=== PATIENT | female | born 1935 | race Caucasian/White ===

== ENCOUNTER 2023-04-16 20:11 | Emergency (ER) | payer MEDICARE ==
[2023-04-16 20:38] VITALS: TEMP 97.8
[2023-04-16 20:48] LABS: BASOPHIL % 0.5 % (0.0-0.4); Basophil (Absolute #) 0.05 x10^3/uL (0-0.4); Eosinophil % 1.5 % (0.00-5.0); Eosinophil (Absolute #) 0.14 x10^3/uL (0-0.5); Hematocrit 38.2 % (35-47); Hemoglobin 12.7 g/dL (12.0-16.0); IMMATURE GRAN # 0.02 x10^3u/L (0.00-0.03); IMMATURE GRAN % 0.2 % (0.00-0.4); Lymphocyte (Absolute #) 2.03 x10^3/uL (1.0-4.6); Mean Corpuscular Hemoglobin 30.2 pg (26-32); Mean Corpuscular Hgb Concent. 33.2 g/dL (32-36); Mean Platelet Volume 9.1 fL (7.5-11.0); Monocytes % 8.7 % (0.0-12.0); Neutrophil % 67.1 % (36.0-66.0); Platelet Count 379 x10^3/uL (150-450); Red Cell Distribution Width 12.5 % (11.5-14.0); White Blood Count 9.2 x10^3/uL (4.0-10.5)
[2023-04-16 20:58] LABS: ALBUMIN 4.3 g/dL (3.5-5.0); ALKALINE PHOSPHATASE 76 U/L (38-126); BLOOD UREA NITROGEN 16 mg/dL (7-17); CHLORIDE 100 mmol/L (98-107); Calcium 9.3 mg/dL (8.4-10.2); Carbon Dioxide 26 mmol/L (22-30); Creatinine 1 0.55 mg/dL (0.52-1.04); EST GLOMERULAR FILTRATION RATE > 60.0 ML/MIN; Glucose 144 mg/dL (74-106); Potassium 3.6 mmol/L (3.5-5.1); SGOT/AST 29 U/L (14-36); SGPT/ALT 20 U/L (0-35); SODIUM 135 mmol/L (137-145); Total Protein 7.4 g/dL (6.3-8.2)
--- NOTE | 2023-04-16 21:21 | ERPHSYRPT ---
- History of Present Illness Time Seen by Provider: 04/16/23 21:16 Historian: patient Exam Limitations: no limitations Patient Subjective Stated Complaint: pt states that she thought it might be a panic attack but has had constant chest heaviness/ pressure since around noon today. 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 she got back before noon and at noon started feeling this heaviness. reports that occasionally today she has felt a little dizzy but denies LOC, syncope. she reports that her has also had a lot of health issues recently and she isn't sure if this is all anxiety and stress. Triage Nursing Assessment: pt ambulated to room 2 independently with slow steady gait. pt is alert and oriented times three, with resp even and unlabored, able t o speak in complete sentences, and able to move all extremities. heart sounds present and normal. lung sounds diminished bilat anterior in all reeves. bilat radial and pedal pulses palpable, equal, and strong. slight non pitting edema noted to bilat feet and pt/ daughter states that it is less swelling today than it has been recently. denies sob, difficulty breathing, n/v, difficulty with urination or bowel elimination. denies fever, cough, chills. Physician History: Patient is an 87-year-old female presents to our ED for evaluation of chest pressure that started this afternoon. Patient took 81 mg aspirin at 8:00 this morning. Lisinopril 20 mg p.o. at 1930 and Tylenol 325 p.o. Chest heaviness is constant. No radiation. No associated nausea vomiting or diaphoresis. Patient states she has been under tremendous amount of stress because of her personal health and her 's health. 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 Patient currently on radiation. Patient symptoms are mild in intensity. No specific worsening improving factors. Patient voices no other complaints or concerns at this time. Portions of this note were created with voice recognition technology. There may be grammatical, spelling, punctuation or sound alike errors Timing/Duration: today Activities at Onset: none Quality: aching Location: substernal Chest Pain Radiation: no radiation Severity of Pain-Max: moderate Severity of Pain-Current: mild Modifying Factors: Improves With: nothing Associated Symptoms: denies symptoms Nitro Today/Relief: no nitro taken today Aspirin Treatment Today: 81 mg x 1 Allergies/Adverse Reactions: niacin Allergy (Intermediate, Verified 04/16/23 20:14) Rash Home Medications: Acetaminophen 325 mg [Tylenol 325 mg] 325 mg PO UD 04/16/23 [History] Amiloride/Hydrochlorothiazide [Amiloride HCl-Hctz 5-50 mg Tab] 1 each PO DAILY 04/16/23 [History] Aspirin 81 gm Chew [Baby Aspirin 81 mg Chew] 81 mg PO DAILY 04/16/23 [History] Lisinopril 20 mg [Zestril 20 MG] 20 mg PO DAILY 04/16/23 [History] Metformin HCl 500 mg [Glucophage 500 MG] 500 mg PO BIDWM 04/16/23 [History] Simvastatin 40 mg PO EVENING MEAL 04/16/23 [History] Hx Tetanus, Diphtheria Vaccination/Date Given: Yes Hx Influenza Vaccination/Date Given: Yes Hx Pneumococcal Vaccination/Date Given: Yes Immunizations Up to Date: Yes Travel Risk - International Travel Have you traveled outside of the country in past 3 weeks: No - Coronavirus Screening Are you exhibiting any of the following symptoms?: No Close contact with a COVID-19 positive Pt in past 14-21 Days: No - Vaccine Status Have you recieved a Covid-19 vaccination: Yes [employer]: Moderna - Vaccination Dates Date of 2cond Vaccination (if applicable): unknown - Review of Systems Constitutional: No Symptoms, No Fever, No Chills Eyes: No Symptoms Ears, Nose, & Throat: No Symptoms Respiratory: No Symptoms, No Cough, No Dyspnea Cardiac: No Symptoms, No Chest Pain, No Edema, No Syncope Abdominal/Gastrointestinal: No Symptoms, No Abdominal Pain, No Nausea, No Vomiting, No Diarrhea Genitourinary Symptoms: No Symptoms, No Dysuria Musculoskeletal: No Symptoms, No Back Pain, No Neck Pain Skin: No Symptoms, No Rash Neurological: No Symptoms, No Dizziness, No Focal Weakness, No Sensory Changes Psychological: No Symptoms Endocrine: No Symptoms Hematologic/Lymphatic: No Symptoms Immunological/Allergic: No Symptoms All Other Systems: Reviewed and Negative - Past Medical History Pertinent Past Medical History: Yes Neurological History: No Pertinent History ENT History: No Pertinent History Cardiac History: High Cholesterol, Hypertension, Other Respiratory History: Lung Cancer Endocrine Medical History: Diabetes Type II Musculoskeletal History: No Pertinent History GI Medical History: No Pertinent History History: No Pertinent History Psycho-Social History: Anxiety Female Reproductive Disorders: No Pertinent History Other Medical History: heart murmur- Dr Santos, 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 - Past Surgical History Past Surgical History: Yes Neuro Surgical History: No Pertinent History Cardiac: No Pertinent History Respiratory: No Pertinent History Gastrointestinal: No Pertinent History Genitourinary: No Pertinent History Musculoskeletal: No Pertinent History Female Surgical History: Hysterectomy - Social History Smoking Status: Never smoker Exposure to second hand smoke: No Drug Use: none Patient Lives Alone: No - Nursing Vital Signs Nursing Vital Signs: Initial Vital Signs Temperature 97.8 F 04/16/23 20:15 Pulse Rate 87 04/16/23 20:15 Respiratory Rate 18 04/16/23 20:15 Blood Pressure 213/105 04/16/23 20:15 O2 Sat by Pulse Oximetry 99 04/16/23 20:15 Pain Scale Pain Intensity 0 - Physical Exam General Appearance: no apparent distress, alert Eye Exam: PERRL/EOMI, eyes nml inspection Ears, Nose, Throat Exam: normal ENT inspection, moist mucous membranes Neck Exam: normal inspection, non-tender, supple, full range of motion Respiratory Exam: normal breath sounds, lungs clear, airway intact, No respiratory distress Cardiovascular Exam: regular rate/rhythm, normal heart sounds, normal peripheral pulses Gastrointestinal/Abdomen Exam: soft, No tenderness, No mass Back Exam: normal inspection, No CVA tenderness, No vertebral tenderness Extremity Exam: normal inspection, normal range of motion Neurologic Exam: alert, oriented x 3, cooperative, normal mood/affect, sensation nml, No motor deficits Skin Exam: normal color, warm, dry Lymphatic Exam: No adenopathy SpO2 Interpretation: normal SpO2: 99 O2 Delivery: Room Air - Course Nursing assessment & vital signs reviewed: Yes EKG Interpreted by Me: RATE ([id number]), Sinus Rhythm, NORMAL AXIS, NORMAL INTERVALS Ordered Tests: Active Orders 24 hr Category Date Time Status AMA [Release AMA] OM.NOW Care 04/16/23 23:30 Active Gridcap Machine Operator STAT Care 04/16/23 20:42 Active EKG-ER Only STAT Care 04/16/23 20:42 Active IV Insertion STAT Care 04/16/23 20:42 Active Pulse Oximetry (ED) STAT Care 04/16/23 20:42 Active CHEST 1 VIEW (PORTABLE) Stat Exams 04/16/23 20:42 Taken CBC W DIFF Stat Lab 04/16/23 20:46 Completed CMP Stat Lab 04/16/23 20:46 Completed TROPONIN Q4H Lab 04/16/23 20:46 Completed TROPONIN Q4H Lab 04/17/23 00:45 Ordered TROPONIN Q4H Lab 04/17/23 04:45 Ordered Lab/Rad Data: Laboratory Result Diagrams 04/16/23 20:46 04/16/23 20:46 Laboratory Results 04/16/23 04/16/23 04/16/23 Range/Units 20:46 20:46 20:46 WBC 9.2 (4.0-10.5) x10^3/uL RBC 4.20 (4.1-5.4) x10^6/uL Hgb 12.7 (12.0-16.0) g/dL Hct 38.2 (35-47) % MCV 91.0 (78-100) fL MCH 30.2 (26-32) pg MCHC 33.2 (32-36) g/dL RDW 12.5 (11.5-14.0) % Plt Count 379 (150-450) x10^3/uL MPV 9.1 (7.5-11.0) fL Gran % 67.1 H (36.0-66.0) % Immature Gran % (Auto) 0.2 (0.00-0.4) % Nucleat RBC Rel Count 0.0 (0.00-0.1) % Eos # (Auto) 0.14 (0-0.5) x10^3/uL Immature Gran # (Auto) 0.02 (0.00-0.03) x10^3u/L Absolute Lymphs (auto) 2.03 (1.0-4.6) x10^3/uL Absolute Monos (auto) 0.80 (0.0-1.3) x10^3/uL Absolute Nucleated RBC 0.00 (0.00-0.01) x10^3u/L Lymphocytes % 22.0 L (24.0-44.0) % Monocytes % 8.7 (0.0-12.0) % Eosinophils % 1.5 (0.00-5.0) % Basophils % 0.5 (0.0-0.4) % Absolute Granulocytes 6.20 (1.4-6.9) x10^3/uL Basophils # 0.05 (0-0.4) x10^3/uL Sodium 135 L (137-145) mmol/L Potassium 3.6 (3.5-5.1) mmol/L Chloride 100 (98-107) mmol/L Carbon Dioxide 26 (22-30) mmol/L Anion Gap 13.0 (5-15) MEQ/L BUN 16 (7-17) mg/dL Creatinine 0.55 (0.52-1.04) mg/dL Estimated GFR > 60.0 ML/MIN Glucose 144 H (74-106) mg/dL Calcium 9.3 (8.4-10.2) mg/dL Total Bilirubin 0.50 (0.2-1.3) mg/dL AST 29 (14-36) U/L ALT 20 (0-35) U/L Alkaline Phosphatase 76 (38-126) U/L Troponin I < 0.012 (0.000-0.034) ng/mL Serum Total Protein 7.4 (6.3-8.2) g/dL Albumin 4.3 (3.5-5.0) g/dL - Progress Progress: improved Air Movement: good Progress Note: 87-year-old female presents to our ED with chest pain. EKG normal sinus rhythm. Ischemic changes. Chest x-ray unchanged from previous as compared to 02/15/2023. CBC CMP nonremarkable. Troponin negative. Patient decided to leave prior to her second troponin. AMA form completed. Patient is of sound mind. Patient is appropriate to make informed and independent medical decisions. Patient understands that leaving AGAINST MEDICAL ADVICE can result in delayed diagnosis, increased risk of morbidity, mortality, short and long-term disability including . In spite of these risks, patient has decided to leave AGAINST MEDICAL ADVICE. Patient understands that she may return to our ED at any point if she reconsiders. Patient agrees to follow-up with her primary care doctor within 48 hours for reevaluation. Patient voices no other complaints or concerns at this time. We will release patient AGAINST MEDICAL ADVICE per their request. 04/16/23 23:36 Complexity of problem addressed is moderate acute complicated Complex of data reviewed and analyzed is moderate. Test ordered. Test reviewed. Clinical correlation made between findings and history and physical examination. Chest x-ray independently reviewed by Dr. Garcia. Formal read pending. EKG shows sinus rhythm. No ischemic changes observed Risk of complication and or risk morbidity/mortality patient management is moderate. Patient discharged AMA. Vital stable. Portions of this note were created with voice recognition technology. There may be grammatical, spelling, punctuation or sound alike errors 04/16/23 23:48 Blood Culture(s) Obtained: No Antibiotics given: No Counseled pt/family regarding: lab results, diagnosis, need for follow-up, rad results - Departure Departure Disposition: Home Clinical Impression: Chest pain Condition: Stable Critical Care Time: No Referrals: REGINO ALEXANDRA NP [Primary Care Provider] - Follow up/PCP as directed Instructions: Chest Pain, Chest Pain That Is Not Caused by the Heart (DC) Additional Instructions: Discharge/Care Plan PONCE SPARKS was seen on 04/16/23 in the Emergency Room. The patient was counseled regarding Diagnosis,Lab results, Imaging studies, need for follow up and when to return to the Emergency Room. Prescriptions given: Discharge Note I have spoken with the patient and/or caregivers. I have explained the patient's condition, diagnosis and treatment plan based on the information available to me at this time. I have answered the patient's and/or caregiver's questions and addressed any concerns. The patient and/or caregivers have as good understanding of the patient's diagnosis, condition and treatment plan as can be expected at this point. The vital signs have been stable. The patient's condition is stable and appropriate for discharge from the emergency department. The patient will pursue further outpatient evaluation with the primary care physician or other designated or consulting physician as outlined in the discharge instructions. The patient and/or caregivers are agreeable to this plan of care and follow-up instructions have been explained in detail. The patient and/or caregivers have received these instruction. The patient/and or caregivers are aware that any significant change in condition or worsening of symptoms should prompt an immediate return to this or the closest emergency department or call 911.
[2023-04-16 23:31] VITALS: O2SAT 99
[2023-04-16 23:42] VITALS: BP 168/90; PULSE 78; RESP 16
--- NOTE | 2023-04-17 09:17 | XRAY ---
Indication: Pain. History small cell carcinoma with treatment. Comparison: February 15, 2023 Portable apical lordotic chest unchanged again demonstrating chronic right hemidiaphragm elevation with right basilar atelectasis. Remaining lungs clear. Heart not enlarged. Bony thorax intact again with osteopenia, degenerative changes, and scoliosis. No new/acute findings.
== END 2023-04-16 23:40 | disposition left against medical advice (07) ==
LOC: ED 20:11
DX: R07.9 Chest pain, unspecified (principal); E78.5 Hyperlipidemia, unspecified; I10 Essential (primary) hypertension; E11.9 Type 2 diabetes mellitus without complications; Z79.84 Long term (current) use of oral hypoglycemic drugs; Z79.899 Other long term (current) drug therapy
CPT/HCPCS: 36000; 36415; 71045; 80053; 84484; 85025; 93005; 93041; 94760; 99284

== ENCOUNTER 2023-06-12 12:15 | Emergency (ER) | payer MEDICARE ==
--- NOTE | 2023-06-12 12:44 | ERPHSYRPT ---
- History of Present Illness Time Seen by Provider: 06/12/23 12:44 Source: patient, family Exam Limitations: clinical condition Physician History: This is an 87-year-old white female patient whose primary care provider is nurse practitioner Brandee Arcos and presents with several hour history of confusion, dizziness, headache and nausea. Patient arrives to the emergency department with resolution of her headache. She has no chest pain. She denies shortness of breath. She denies abdominal pain. Patient's daughter, who provided additional independent history, states that the patient's blood pressure was 150/70. They are unaware exactly when the patient's symptoms began. However, the patient's daughter states that she has improved. 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 Timing/Duration: today Severity: mild Character of Deficits: none Deficits: no difficulties Baseline/Normal Cognition: alert but confused Current Cognition: alert but confused Baseline Gait: walks w/o assistance Associated Symptoms: confusion, nausea, headache, other (Dizziness) Allergies/Adverse Reactions: niacin Allergy (Intermediate, Verified 06/12/23 12:49) Rash Home Medications: Acetaminophen 325 mg [Tylenol 325 mg] 325 mg PO UD 04/16/23 [History] Amiloride/Hydrochlorothiazide [Amiloride HCl-Hctz 5-50 mg Tab] 1 each PO DAILY 04/16/23 [History] Aspirin 81 gm Chew [Baby Aspirin 81 mg Chew] 81 mg PO DAILY 04/16/23 [History] Lisinopril 20 mg [Zestril 20 MG] 20 mg PO DAILY 04/16/23 [History] Metformin HCl 500 mg [Glucophage 500 MG] 500 mg PO BIDWM 04/16/23 [History] Simvastatin 40 mg PO EVENING MEAL 04/16/23 [History] Escitalopram Oxalate [Lexapro] 10 mg PO DAILY 05/24/23 [History] Meclizine HCl 12.5 mg PO TID PRN 05/24/23 [History] ALPRAZolam 0.25 MG [xanAX 0.25 MG] 0.5 - 1 tab PO DAILY PRN PRN 09/23/23 [History] Hx Tetanus, Diphtheria Vaccination/Date Given: Yes Hx Influenza Vaccination/Date Given: Yes Hx Pneumococcal Vaccination/Date Given: Yes Travel Risk - International Travel Have you traveled outside of the country in past 3 weeks: No - Coronavirus Screening Are you exhibiting any of the following symptoms?: No Close contact with a COVID-19 positive Pt in past 14-21 Days: No - Vaccine Status Have you recieved a Covid-19 vaccination: Yes Cleaner Greaser: Moderna - Vaccination Dates Date of 2cond Vaccination (if applicable): unknown - Review of Systems Constitutional: No Symptoms Eyes: No Symptoms Ears, Nose, & Throat: No Symptoms Respiratory: No Symptoms Cardiac: No Symptoms Abdominal/Gastrointestinal: No Symptoms Genitourinary Symptoms: No Symptoms Musculoskeletal: No Symptoms Skin: No Symptoms Neurological: Dizziness Psychological: No Symptoms Endocrine: No Symptoms Hematologic/Lymphatic: No Symptoms Immunological/Allergic: No Symptoms All Other Systems: Reviewed and Negative - Past Medical History Pertinent Past Medical History: Yes Neurological History: No Pertinent History ENT History: No Pertinent History Cardiac History: High Cholesterol, Hypertension, Other Respiratory History: Lung Cancer Endocrine Medical History: Diabetes Type II Musculoskeletal History: No Pertinent History GI Medical History: No Pertinent History History: No Pertinent History Psycho-Social History: Anxiety Female Reproductive Disorders: No Pertinent History Other Medical History: heart murmur- Dr Santos, 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 - Past Surgical History Past Surgical History: Yes Neuro Surgical History: No Pertinent History Cardiac: No Pertinent History Respiratory: No Pertinent History Gastrointestinal: No Pertinent History Genitourinary: No Pertinent History Musculoskeletal: No Pertinent History Female Surgical History: Hysterectomy - Social History Smoking Status: Never smoker Exposure to second hand smoke: No Drug Use: none Patient Lives Alone: No - Nursing Vital Signs Nursing Vital Signs: Initial Vital Signs Temperature 98.0 F 06/12/23 12:50 Pulse Rate 68 06/12/23 12:50 Respiratory Rate 18 06/12/23 12:50 Blood Pressure 177/74 06/12/23 12:50 O2 Sat by Pulse Oximetry 97 06/12/23 12:50 Pain Scale Pain Intensity 0 - [place] Coma Scale Best Eye Response (Angelica): (4) open spontaneously Best Verbal Response (Angelica): (4) confused conversation Best Motor Response (Angelica): (6) obeys commands [place] Total: 14 - Physical Exam General Appearance: no apparent distress, alert, anxiety, thin Eye Exam: bilateral eye: normal inspection, PERRL, EOMI Ears, Nose, Throat Exam: normal ENT inspection, moist mucous membranes Neck Exam: normal inspection, non-tender, supple, full range of motion Respiratory: normal breath sounds, lungs clear, airway intact, No chest tenderness, No respiratory distress Cardiovascular: regular rate/rhythm, normal heart sounds, normal peripheral pulses Gastrointestinal: soft, normal bowel sounds, No tenderness Pelvic Exam: not done Rectal Exam: not done Back Exam: normal inspection, normal range of motion, No CVA tenderness, No vertebral tenderness Extremity Exam: normal inspection, normal range of motion, pelvis stable Mental Status: alert, oriented x 3, cooperative contract administration coordinator Exam: normal hearing, normal speech, PERRL, tongue midline Motor/Sensory: no motor deficit, no sensory deficit Skin Exam: normal color, warm, dry SpO2 Interpretation: normal O2 Delivery: Room Air - Course Nursing assessment & vital signs reviewed: Yes EKG Interpreted by Me: RATE (66), Sinus Rhythm, NORMAL AXIS, NORMAL INTERVALS, Right Bundle Branch Block, Other (No acute ischemic changes on today's twelve- lead EKG.) Ordered Tests: Active Orders 24 hr Category Date Time Status EKG-ER Only STAT Care 06/12/23 13:03 Active IV Insertion STAT Care 06/12/23 13:03 Active HEAD WITHOUT CONTRAST [CT] Stat Exams 06/12/23 13:03 Completed CBC W DIFF Stat Lab 06/12/23 13:15 Completed CMP Stat Lab 06/12/23 13:15 Completed CULTURE,URINE Stat Lab 06/12/23 13:06 Received MAGNESIUM Stat Lab 06/12/23 13:15 Completed TROPONIN Q4H Lab 06/12/23 13:15 Completed TROPONIN Q4H Lab 06/12/23 17:15 Ordered TROPONIN Q4H Lab 06/12/23 21:15 Ordered UA W/RFX UR CULTURE Stat Lab 06/12/23 13:06 Completed Medication Summary Generic Name Dose Route Start Last Admin Trade Name Freq PRN Reason Stop Dose Admin Sodium Chloride 1,000 mls @ 100 mls/hr 06/12/23 13:15 06/12/23 13:26 Sodium Chloride 0.9% 1000 Ml IV 07/12/23 13:14 100 mls/hr .Q10H ANABELLE Administration Discontinued Medications Generic Name Dose Route Start Last Admin Trade Name Freq PRN Reason Stop Dose Admin Ceftriaxone Sodium/Dextrose 1 g in 50 mls @ 100 mls/hr 06/12/23 13:55 06/12/23 14:04 Rocephin 1 Gm-D5w 50 Ml Bag IV 06/12/23 14:24 100 ml/hr STAT STA 100 mls/hr Administration Ceftriaxone Sodium/Dextrose Confirm 06/12/23 14:02 Rocephin 1 Gm-D5w 50 Ml Bag Administered 06/12/23 14:03 Dose 1 g in 50 mls @ ud IV .K-MED ONE Lab/Rad Data: Laboratory Result Diagrams 06/12/23 13:15 06/12/23 13:15 Laboratory Results 06/12/23 06/12/23 06/12/23 Range/Units 13:15 13:15 13:15 WBC (4.0-10.5) x10^3/uL RBC (4.1-5.4) x10^6/uL Hgb (12.0-16.0) g/dL Hct (35-47) % MCV (78-100) fL MCH (26-32) pg MCHC (32-36) g/dL RDW (11.5-14.0) % Plt Count (150-450) x10^3/uL MPV (7.5-11.0) fL Gran % (36.0-66.0) % Immature Gran % (Auto) (0.00-0.4) % Nucleat RBC Rel Count (0.00-0.1) % Eos # (Auto) (0-0.5) x10^3/uL Immature Gran # (Auto) (0.00-0.03) x10^3u/L Absolute Lymphs (auto) (1.0-4.6) x10^3/uL Absolute Monos (auto) (0.0-1.3) x10^3/uL Absolute Nucleated RBC (0.00-0.01) x10^3u/L Lymphocytes % (24.0-44.0) % Monocytes % (0.0-12.0) % Eosinophils % (0.00-5.0) % Basophils % (0.0-0.4) % Absolute Granulocytes (1.4-6.9) x10^3/uL Basophils # (0-0.4) x10^3/uL Sodium 136 L (137-145) mmol/L Potassium 3.5 (3.5-5.1) mmol/L Chloride 98 (98-107) mmol/L Carbon Dioxide 26 (22-30) mmol/L Anion Gap 15.4 H (5-15) MEQ/L BUN 15 (7-17) mg/dL Creatinine 0.56 (0.52-1.04) mg/dL Estimated GFR > 60.0 ML/MIN Glucose 91 (74-106) mg/dL Calcium 8.9 (8.4-10.2) mg/dL Magnesium 1.4 L (1.6-2.3) mg/dL Total Bilirubin 0.50 (0.2-1.3) mg/dL AST 30 (14-36) U/L ALT 21 (0-35) U/L Alkaline Phosphatase 66 (38-126) U/L Troponin I < 0.012 (0.000-0.034) ng/mL Serum Total Protein 6.9 (6.3-8.2) g/dL Albumin 3.9 (3.5-5.0) g/dL Urine Color (Yellow) Urine Appearance (Clear) Urine pH (4.6-8.0) Ur Specific [place] (1.005-1.030) Urine Protein (Negative) Urine Glucose (UA) (Negative) mg/dL Urine Ketones (Negative) Urine Blood (Negative) Urine Nitrite (Negative) Urine Bilirubin (Negative) Urine Urobilinogen (0.2) mg/dL Ur Leukocyte Esterase (Negative) U Hyaline Cast (Auto) (0-2) /LPF Urine Microscopic RBC (0-5) /HPF Urine Microscopic WBC (0-5) /HPF Ur Epithelial Cells (None Seen) /HPF Urine Bacteria (None Seen) /HPF Urine Culture Reflexed (NO) Influenza Type A Ag NEGATIVE (NEGATIVE) Influenza Type B Ag NEGATIVE (NEGATIVE) RSV (PCR) NEGATIVE (NEGATIVE) SARS-CoV-2 (PCR) NEGATIVE (NEGATIVE) 06/12/23 06/12/23 Range/Units 13:15 13:06 WBC 7.3 (4.0-10.5) x10^3/uL RBC 3.81 L (4.1-5.4) x10^6/uL Hgb 11.9 L (12.0-16.0) g/dL Hct 34.7 L (35-47) % MCV 91.1 (78-100) fL MCH 31.2 (26-32) pg MCHC 34.3 (32-36) g/dL RDW 14.0 (11.5-14.0) % Plt Count 376 (150-450) x10^3/uL MPV 8.6 (7.5-11.0) fL Gran % 75.3 H (36.0-66.0) % Immature Gran % (Auto) 0.5 H (0.00-0.4) % Nucleat RBC Rel Count 0.0 (0.00-0.1) % Eos # (Auto) 0.10 (0-0.5) x10^3/uL Immature Gran # (Auto) 0.04 H (0.00-0.03) x10^3u/L Absolute Lymphs (auto) 0.68 L (1.0-4.6) x10^3/uL Absolute Monos (auto) 0.96 (0.0-1.3) x10^3/uL Absolute Nucleated RBC 0.00 (0.00-0.01) x10^3u/L Lymphocytes % 9.3 L (24.0-44.0) % Monocytes % 13.1 H (0.0-12.0) % Eosinophils % 1.4 (0.00-5.0) % Basophils % 0.4 (0.0-0.4) % Absolute Granulocytes 5.53 (1.4-6.9) x10^3/uL Basophils # 0.03 (0-0.4) x10^3/uL Sodium (137-145) mmol/L Potassium (3.5-5.1) mmol/L Chloride (98-107) mmol/L Carbon Dioxide (22-30) mmol/L Anion Gap (5-15) MEQ/L BUN (7-17) mg/dL Creatinine (0.52-1.04) mg/dL Estimated GFR ML/MIN Glucose (74-106) mg/dL Calcium (8.4-10.2) mg/dL Magnesium (1.6-2.3) mg/dL Total Bilirubin (0.2-1.3) mg/dL AST (14-36) U/L ALT (0-35) U/L Alkaline Phosphatase (38-126) U/L Troponin I (0.000-0.034) ng/mL Serum Total Protein (6.3-8.2) g/dL Albumin (3.5-5.0) g/dL Urine Color Yellow (Yellow) Urine Appearance Cloudy A (Clear) Urine pH 6.5 (4.6-8.0) Ur Specific [place] 1.015 (1.005-1.030) Urine Protein Negative (Negative) Urine Glucose (UA) Negative (Negative) mg/dL Urine Ketones Negative (Negative) Urine Blood Trace (Negative) Urine Nitrite Negative (Negative) Urine Bilirubin Negative (Negative) Urine Urobilinogen 2.0 A (0.2) mg/dL Ur Leukocyte Esterase Moderate A (Negative) U Hyaline Cast (Auto) NONE SEEN (0-2) /LPF Urine Microscopic RBC 0-2 (0-5) /HPF Urine Microscopic WBC 21-50 A (0-5) /HPF Ur Epithelial Cells Rare (None Seen) /HPF Urine Bacteria Many A (None Seen) /HPF Urine Culture Reflexed YES (NO) Influenza Type A Ag (NEGATIVE) Influenza Type B Ag (NEGATIVE) RSV (PCR) (NEGATIVE) SARS-CoV-2 (PCR) (NEGATIVE) - Progress Progress: improved, re-examined Progress Note: 06/12/23 13:14 This patient's medical issue is 1 of moderate to high complexity. Level complexity in the work-up performed is based on review of the patient's past medical history, review the patient's medication list, review the patient's drug allergy list, history of present illness and physical findings on examination. The work-up in this patient includes intravenous line placement, intravenous normal saline, CBC, CMP, urinalysis, magnesium level, twelve-lead EKG, troponin level, CT scan of the head without contrast. 06/12/23 13:[address] scan of the head without contrast was interpreted by the radiologist and I reviewed the interpretation. 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 There is a smaller right occipital subcutaneous soft tissue mass. Counseled pt/family regarding: lab results, diagnosis, rad results Medical Desision Making - Independent Historian Additional History obtained from: Child (Daughter) - Diagnostic Testing Diagnostic test were ordered, analyzed, and reviewed by me: Yes Radiological Interpretation: Reviewed by me, Teleradiologist Report - Risk of complications The pt has a mod risk of morbidity or mortality based on: Need for prescription drug management - Departure Departure Disposition: Home Clinical Impression: Confusion associated with infection, UTI (urinary tract infection) Condition: Stable Critical Care Time: No Referrals: [facility] [employer] [facility] [Primary Care Provider] - Follow up/PCP as directed Additional Instructions: Plenty of fluids. Take your antibiotics and other medications as prescribed. Call your primary care provider today, 06/12/2023, to make arranges for follow- up appointment for further evaluation management. Prescriptions: Levofloxacin [Levaquin 500 MG Tablet] 500 mg PO DAILY #7 tablet
[2023-06-12 13:05] VITALS: TEMP 98
[2023-06-12] MEDS ORDERED: Sodium Chloride 0.9% 1000 ML 1,000 ML IV SCH (13:15)
[2023-06-12] MEDS ORDERED: Sodium Chloride 0.9% 1000 ML 1,000 ML ONE (13:24)
[2023-06-12 13:28] LABS: Absolute Neutrophil Ct (ANC) 5.53 x10^3/uL (1.4-6.9); BASOPHIL % 0.4 % (0.0-0.4); Basophil (Absolute #) 0.03 x10^3/uL (0-0.4); Eosinophil % 1.4 % (0.00-5.0); Hematocrit 34.7 % (35-47); Hemoglobin 11.9 g/dL (12.0-16.0); IMMATURE GRAN # 0.04 x10^3u/L (0.00-0.03); IMMATURE GRAN % 0.5 % (0.00-0.4); Lymphocyte (Absolute #) 0.68 x10^3/uL (1.0-4.6); Lymphocytes % 9.3 % (24.0-44.0); Mean Cell Volume 91.1 fL (78-100); Mean Corpuscular Hemoglobin 31.2 pg (26-32); Mean Corpuscular Hgb Concent. 34.3 g/dL (32-36); Mean Platelet Volume 8.6 fL (7.5-11.0); Monocyte (Absolute #) 0.96 x10^3/uL (0.0-1.3); Monocytes % 13.1 % (0.0-12.0); Neutrophil % 75.3 % (36.0-66.0); Platelet Count 376 x10^3/uL (150-450); Red Blood Count 3.81 x10^6/uL (4.1-5.4); White Blood Count 7.3 x10^3/uL (4.0-10.5)
[2023-06-12 13:32] LABS: Appearance Cloudy (Clear); Bilirubin Negative (Negative); Blood Trace (Negative); Glucose, Urine Negative (Negative); Ketones Negative (Negative); Leukocyte Esterase Moderate (Negative); Nitrite Negative (Negative); Ph 6.5 (4.6-8.0); Protein,Urine Dip Negative (Negative); Specific Gravity 1.015 (1.005-1.030)
--- NOTE | 2023-06-12 13:35 | XRAY ---
Indication: Headache and dizziness. No known injury. Multiple contiguous axial images obtained through the head without contrast. Comparison: May 24, 2023. Again age-appropriate global atrophy, mild periventricular degenerative micro-ischemia bilaterally, and remote lacunar infarcts both basal ganglia/left caudate head. No acute intracranial hemorrhage, abnormal extra-axial fluid collection, or mass effect. Fourth ventricle is midline without hydrocephalus. Bony calvarium intact. Visualized paranasal sinuses clear. Previous right occipital subcutaneous soft tissue mass continues to be smaller measuring 2.0 x 0.7 cm. Impression: 1. Continued nonacute senile brain with remote lacunar infarcts. 2. Smaller right occipital subcutaneous soft tissue mass.
[2023-06-12 13:37] LABS: Bacteria Many /HPF (None Seen); Epithelial Cells Rare /HPF (None Seen); Hyaline Casts NONE SEEN /LPF (0-2); RBC 0-2 /HPF (0-5); WBC 21-50 /HPF (0-5)
[2023-06-12 13:43] LABS: ADD URINE CULTURE? YES (NO)
[2023-06-12] MEDS ORDERED: ROCEPHIN 1 Gm-D5w 50 ml Bag** 1 G/50 ML IVPB IV STA (13:55)
[2023-06-12] MEDS ORDERED: ROCEPHIN 1 Gm-D5w 50 ml Bag** 1 G/50 ML IVPB IV ONE (14:02)
[2023-06-12 14:06] LABS: INFLUENZA A NEGATIVE (NEGATIVE); INFLUENZA B NEGATIVE (NEGATIVE); RESPIRATORY SYNCTIAL VIRUS NEGATIVE (NEGATIVE); SARS-CoV-2 Xpert Express NEGATIVE (NEGATIVE)
[2023-06-12 14:17] LABS: ALBUMIN 3.9 g/dL (3.5-5.0); ALKALINE PHOSPHATASE 66 U/L (38-126); ANION GAP 15.4 MEQ/L (5-15); BLOOD UREA NITROGEN 15 mg/dL (7-17); CHLORIDE 98 mmol/L (98-107); Calcium 8.9 mg/dL (8.4-10.2); Carbon Dioxide 26 mmol/L (22-30); Creatinine 1 0.56 mg/dL (0.52-1.04); EST GLOMERULAR FILTRATION RATE > 60.0 ML/MIN; Glucose 91 mg/dL (74-106); MAGNESIUM 1.4 mg/dL (1.6-2.3); Potassium 3.5 mmol/L (3.5-5.1); SGOT/AST 30 U/L (14-36); SGPT/ALT 21 U/L (0-35); SODIUM 136 mmol/L (137-145); Total Protein 6.9 g/dL (6.3-8.2)
[2023-06-12 14:32] VITALS: BP 192/101; PULSE 79; RESP 18; O2SAT 96
== END 2023-06-12 15:24 | disposition home or self-care (01) ==
LOC: ED 12:15
DX: N39.0 Urinary tract infection, site not specified (principal); R41.0 Disorientation, unspecified; R42 Dizziness and giddiness; R51.9 Headache, unspecified; R11.0 Nausea; I10 Essential (primary) hypertension; E78.5 Hyperlipidemia, unspecified; E11.9 Type 2 diabetes mellitus without complications; Z79.84 Long term (current) use of oral hypoglycemic drugs; Z79.899 Other long term (current) drug therapy; Z20.828 Contact with and (suspected) exposure to other viral communicable diseases
CPT/HCPCS: 0241U; 36000; 36415; 70450; 80053; 81001; 83735; 84484; 85025; 87077; 87086; 87186; 93005; 96360; 96361; 96365; 99284; J0696

== ENCOUNTER 2023-11-14 19:51 | Emergency (ER) | payer MEDICARE ==
[2023-11-14 20:25] VITALS: TEMP 98.6
[2023-11-14] MEDS ORDERED: Sodium Chloride 0.9% 1000 ML 1,000 ML ONE (21:14)
[2023-11-14] MEDS ORDERED: Reglan 10 MG/2 ML ONE (21:14)
[2023-11-14] MEDS ORDERED: BENADRYL 50 MG/ML ONE (21:14)
[2023-11-14] MEDS: Sodium Chloride 0.9% 1000 ML 1,000 ML IV SCH (21:37)
[2023-11-14 21:39] LABS: Absolute Neutrophil Ct (ANC) 7.43 x10^3/uL (1.4-6.9); BASOPHIL % 0.3 % (0.0-0.4); Basophil (Absolute #) 0.03 x10^3/uL (0-0.4); Eosinophil % 0.9 % (0.00-5.0); Eosinophil (Absolute #) 0.08 x10^3/uL (0-0.5); Hematocrit 38.5 % (35-47); Hemoglobin 12.8 g/dL (12.0-16.0); IMMATURE GRAN # 0.04 x10^3u/L (0.00-0.03); IMMATURE GRAN % 0.4 % (0.00-0.4); Lymphocyte (Absolute #) 0.79 x10^3/uL (1.0-4.6); Lymphocytes % 8.6 % (24.0-44.0); Mean Cell Volume 93.7 fL (78-100); Mean Corpuscular Hemoglobin 31.1 pg (26-32); Mean Corpuscular Hgb Concent. 33.2 g/dL (32-36); Mean Platelet Volume 9.6 fL (7.5-11.0); Monocyte (Absolute #) 0.81 x10^3/uL (0.0-1.3); Monocytes % 8.8 % (0.0-12.0); Platelet Count 315 x10^3/uL (150-450); Red Blood Count 4.11 x10^6/uL (4.1-5.4); Red Cell Distribution Width 12.5 % (11.5-14.0); White Blood Count 9.2 x10^3/uL (4.0-10.5)
[2023-11-14] MEDS: BENADRYL 50 MG/ML IV ONE (21:53)
[2023-11-14] MEDS: Reglan 10 MG/2 ML IV ONE (21:58)
[2023-11-14 22:00] LABS: ALBUMIN 4.1 g/dL (3.5-5.0); BILIRUBIN,TOTAL 0.6 mg/dL (0.2-1.3); Calcium 9.2 mg/dL (8.4-10.2); Creatinine 1 0.6 mg/dL (0.52-1.04); EST GLOMERULAR FILTRATION RATE 86.8 ML/MIN; Potassium 3.6 mmol/L (3.5-5.1); Total Protein 7.1 g/dL (6.3-8.2)
[2023-11-14 22:05] LABS: Appearance Clear (Clear); Bacteria None Seen /HPF (None Seen); Bilirubin Negative (Negative); Blood Negative (Negative); Epithelial Cells None Seen /HPF (None Seen); Glucose, Urine Negative (Negative); Hyaline Casts NONE SEEN /LPF (0-2); Ketones Trace (Negative); Leukocyte Esterase Trace (Negative); Nitrite Negative (Negative); Ph 8.5 (4.6-8.0); Protein,Urine Dip Trace (Negative)
[2023-11-14 22:06] LABS: ADD URINE CULTURE? YES (NO)
[2023-11-14] MEDS ORDERED: ROCEPHIN 2 Gm-D5w 50ML BAG** 2 G/50 ML IVPB IV ONE (22:27)
[2023-11-14] MEDS ORDERED: APRESOLINE 20 MG/ML INJ ONE (22:29)
[2023-11-14] MEDS: APRESOLINE 20 MG/ML INJ IV ONE (22:31)
[2023-11-14] MEDS: ROCEPHIN 2 Gm-D5w 50ML BAG** 2 G/50 ML IVPB IV STA (22:31)
--- NOTE | 2023-11-14 22:56 | ERPHSYRPT ---
- History of Present Illness Time Seen by Provider: 11/14/23 20:16 Source: patient, family Exam Limitations: no limitations Patient Subjective Stated Complaint: headache since noon today Triage Nursing Assessment: pt ambulatory to bed by self from wheelchair, pt alert and oriented x3, skin pwd, pt c/o headache since noon and generalized weakness for the last couple weeks, pt receives radiation treatments for lung CA at [facility]. last tx was 2-3 weeks ago. pt states shes had weakness since her last radiation treatment, pt states she did have a fall yesterday tripping over her cat and hit her L side of her head. pt denies any LOC or bloodthinners. pt c/o R sided headache. hand edger liner equal and strong bilaterally, no drift noted with any of her extremities. 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 Patient is feeling weak fatigued tired and dehydrated. Per family this usually happens whenever she gets radiation treatment and also at times she has a UTI with similar symptoms. She denies any chest pain palpitations or shortness of breath. No abdominal pain nausea or vomiting but weakness all over. Reports having 8/10 intensity frontal headache earlier which is improved after taking Tylenol prior to arrival and currently rates 4/10 intensity. Denies any visual symptoms, numbness tingling or focal weakness/difficulty speech associated with the headache. Reports having similar headaches in the past and does not think this is the worst headache of her life. Reports her headache gets triggered with quick movements of her head or quick turning around and she has history of vertigo. Denies any neck pain. No fever or chills reported. No known sick contact. Allergies/Adverse Reactions: niacin Allergy (Intermediate, Verified 11/14/23 20:12) Rash Home Medications: Acetaminophen 325 mg [Tylenol 325 mg] 325 mg PO UD 04/16/23 [History] Amiloride/Hydrochlorothiazide [Amiloride HCl-Hctz 5-50 mg Tab] 1 each PO DAILY 04/16/23 [History] Aspirin 81 gm Chew [Baby Aspirin 81 mg Chew] 81 mg PO DAILY 04/16/23 [History] Lisinopril 20 mg [Zestril 20 MG] 20 mg PO DAILY 04/16/23 [History] Metformin HCl 500 mg [Glucophage 500 MG] 500 mg PO BIDWM 04/16/23 [History] Simvastatin 20 mg PO BID 04/16/23 [History] Escitalopram Oxalate [Lexapro] 10 mg PO DAILY 05/24/23 [History] Hx Tetanus, Diphtheria Vaccination/Date Given: Yes Hx Influenza Vaccination/Date Given: Yes Hx Pneumococcal Vaccination/Date Given: Yes Immunizations Up to Date: Yes Travel Risk - International Travel Have you traveled outside of the country in past 3 weeks: No - Coronavirus Screening Are you exhibiting any of the following symptoms?: No Close contact with a COVID-19 positive Pt in past 14-21 Days: No - Vaccine Status Have you recieved a Covid-19 vaccination: Yes 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 - Vaccination Dates Date of 2cond Vaccination (if applicable): unknown - Review of Systems Constitutional: Fatigue, Weakness Eyes: No Symptoms Ears, Nose, & Throat: No Symptoms Respiratory: No Symptoms Cardiac: No Symptoms Abdominal/Gastrointestinal: No Symptoms Genitourinary Symptoms: No Symptoms Musculoskeletal: Arthralgias Skin: No Symptoms Neurological: Dizziness, Headache Psychological: No Symptoms Endocrine: No Symptoms Hematologic/Lymphatic: No Symptoms Immunological/Allergic: No Symptoms - Past Medical History Pertinent Past Medical History: Yes Neurological History: No Pertinent History ENT History: No Pertinent History Cardiac History: High Cholesterol, Hypertension, Other Respiratory History: Lung Cancer Endocrine Medical History: Diabetes Type II Musculoskeletal History: No Pertinent History GI Medical History: No Pertinent History History: No Pertinent History Psycho-Social History: Anxiety Female Reproductive Disorders: No Pertinent History Other Medical History: heart murmur- Dr Santos, 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 - Past Surgical History Past Surgical History: Yes Neuro Surgical History: No Pertinent History Cardiac: No Pertinent History Respiratory: No Pertinent History Gastrointestinal: No Pertinent History Genitourinary: No Pertinent History Musculoskeletal: No Pertinent History Female Surgical History: Hysterectomy - Social History Smoking Status: Never smoker Exposure to second hand smoke: No Drug Use: none Patient Lives Alone: No - Nursing Vital Signs Nursing Vital Signs: Initial Vital Signs Temperature 98.6 F 11/14/23 20:13 Pulse Rate 79 11/14/23 20:13 Respiratory Rate 24 11/14/23 20:13 Blood Pressure 175/99 11/14/23 20:13 O2 Sat by Pulse Oximetry 94 L 11/14/23 20:13 Pain Scale Pain Intensity 5 - Physical Exam General Appearance: no apparent distress, alert Eye Exam: PERRL/EOMI Ears, Nose, Throat Exam: normal ENT inspection Neck Exam: normal inspection, non-tender, supple, full range of motion Respiratory Exam: normal breath sounds, lungs clear Cardiovascular Exam: regular rate/rhythm, normal heart sounds Gastrointestinal/Abdomen Exam: soft, normal bowel sounds, No tenderness Back Exam: normal inspection, normal range of motion Extremity Exam: normal inspection, normal range of motion, pelvis stable Neurologic Exam: alert, oriented x 3, cooperative, train brakeman II-XII nml as tested, normal mood/affect, nml cerebellar function, sensation nml, No motor deficits Skin Exam: normal color SpO2 Interpretation: normal SpO2: 92 O2 Delivery: Room Air Ordered Tests: Active Orders 24 hr Category Date Time Status Ambulate Patient ROUTINE Care 11/14/23 20:45 Active First Aid Nurse STAT Care 11/14/23 20:45 Active IV Insertion STAT Care 11/14/23 20:45 Active HEAD WITHOUT CONTRAST [CT] Stat Exams 11/14/23 21:14 Taken BLOOD CULTURE Stat Lab 11/14/23 21:32 Received CBC W DIFF Stat Lab 11/14/23 20:55 Completed CMP Stat Lab 11/14/23 20:55 Completed CULTURE,URINE Stat Lab 11/14/23 21:12 Received Lactic Acid Urgent Lab 11/14/23 21:05 Completed UA W/RFX UR CULTURE Stat Lab 11/14/23 21:12 Completed Medication Summary Generic Name Dose Route Start Last Admin Trade Name Freq PRN Reason Stop Dose Admin Sodium Chloride 1,000 mls @ 125 mls/hr 11/14/23 20:45 11/14/23 21:37 Sodium Chloride 0.9% 1000 Ml IV 12/14/23 20:44 125 mls/hr .Q8H ANABELLE Administration Discontinued Medications Generic Name Dose Route Start Last Admin Trade Name Freq PRN Reason Stop Dose Admin Diphenhydramine HCl 25 mg 11/14/23 20:45 11/14/23 21:53 Diphenhydramine Hcl 50 Mg/Ml Vial IV 11/14/23 20:46 25 mg STAT ONE Administration Diphenhydramine HCl Confirm 11/14/23 21:14 Diphenhydramine Hcl 50 Mg/Ml Vial Administered 11/14/23 21:15 Dose 50 mg .ROUTE .STK-MED ONE Hydralazine HCl 10 mg 11/14/23 22:30 11/14/23 22:31 Hydralazine Hcl 20 Mg/Ml Vial IV 11/14/23 22:31 10 mg STAT ONE Administration Hydralazine HCl Confirm 11/14/23 22:29 Hydralazine Hcl 20 Mg/Ml Vial Administered 11/14/23 22:30 Dose 20 mg .ROUTE .STK-MED ONE Ceftriaxone Sodium/Dextrose 2 g in 50 mls @ 100 mls/hr 11/14/23 22:21 11/14/23 22:31 Rocephin 2 Gm-D5w 50ml Bag IV 11/14/23 22:50 100 mls/hr STAT STA 100 mls/hr Administration Ceftriaxone Sodium/Dextrose Confirm 11/14/23 22:27 Rocephin 2 Gm-D5w 50ml Bag Administered 11/14/23 22:28 Dose 2 g in 50 mls @ ud IV .STK-MED ONE Metoclopramide HCl 5 mg 11/14/23 20:45 11/14/23 21:58 Metoclopramide Hcl 10 Mg/2 Ml Vial IV 11/14/23 20:46 5 mg STAT ONE Administration Metoclopramide HCl Confirm 11/14/23 21:14 Metoclopramide Hcl 10 Mg/2 Ml Vial Administered 11/14/23 21:15 Dose 10 mg .ROUTE .STK-MED ONE Lab/Rad Data: Laboratory Result Diagrams 11/14/23 20:55 11/14/23 20:55 Laboratory Results 11/14/23 11/14/23 11/14/23 Range/Units 21:12 21:05 20:55 WBC (4.0-10.5) x10^3/uL RBC (4.1-5.4) x10^6/uL Hgb (12.0-16.0) g/dL Hct (35-47) % MCV (78-100) fL MCH (26-32) pg MCHC (32-36) g/dL RDW (11.5-14.0) % Plt Count (150-450) x10^3/uL MPV (7.5-11.0) fL Gran % (36.0-66.0) % Immature Gran % (Auto) (0.00-0.4) % Nucleat RBC Rel Count (0.00-0.1) % Eos # (Auto) (0-0.5) x10^3/uL Immature Gran # (Auto) (0.00-0.03) x10^3u/L Absolute Lymphs (auto) (1.0-4.6) x10^3/uL Absolute Monos (auto) (0.0-1.3) x10^3/uL Absolute Nucleated RBC (0.00-0.01) x10^3u/L Lymphocytes % (24.0-44.0) % Monocytes % (0.0-12.0) % Eosinophils % (0.00-5.0) % Basophils % (0.0-0.4) % Absolute Granulocytes (1.4-6.9) x10^3/uL Basophils # (0-0.4) x10^3/uL Sodium 137 (135-145) mmol/L Potassium 3.6 (3.5-5.1) mmol/L Chloride 96 L (98-107) mmol/L Carbon Dioxide 29 (22-30) mmol/L Anion Gap 15.0 (5-15) MEQ/L BUN 18 H (7-17) mg/dL Creatinine 0.60 (0.52-1.04) mg/dL Estimated GFR 86.8 ML/MIN Glucose 90 (74-106) mg/dL Lactic Acid 2.5 H (0.4-2.0) Calcium 9.2 (8.4-10.2) mg/dL Total Bilirubin 0.60 (0.2-1.3) mg/dL AST 21 (14-36) U/L ALT 12 (0-35) U/L Alkaline Phosphatase 96 (38-126) U/L Serum Total Protein 7.1 (6.3-8.2) g/dL Albumin 4.1 (3.5-5.0) g/dL Urine Color Yellow (Yellow) Urine Appearance Clear (Clear) Urine pH 8.5 A (4.6-8.0) Ur Specific [place] 1.020 (1.005-1.030) Urine Protein Trace A (Negative) Urine Glucose (UA) Negative (Negative) mg/dL Urine Ketones Trace A (Negative) Urine Blood Negative (Negative) Urine Nitrite Negative (Negative) Urine Bilirubin Negative (Negative) Urine Urobilinogen 1.0 A (0.2) mg/dL Ur Leukocyte Esterase Trace A (Negative) U Hyaline Cast (Auto) NONE SEEN (0-2) /LPF Urine Microscopic RBC 3-5 (0-5) /HPF Urine Microscopic WBC 6-10 A (0-5) /HPF Ur Epithelial Cells None Seen (None Seen) /HPF Urine Bacteria None Seen (None Seen) /HPF Urine Culture Reflexed YES (NO) 11/14/23 Range/Units 20:55 WBC 9.2 (4.0-10.5) x10^3/uL RBC 4.11 (4.1-5.4) x10^6/uL Hgb 12.8 (12.0-16.0) g/dL Hct 38.5 (35-47) % MCV 93.7 (78-100) fL MCH 31.1 (26-32) pg MCHC 33.2 (32-36) g/dL RDW 12.5 (11.5-14.0) % Plt Count 315 (150-450) x10^3/uL MPV 9.6 (7.5-11.0) fL Gran % 81.0 H (36.0-66.0) % Immature Gran % (Auto) 0.4 (0.00-0.4) % Nucleat RBC Rel Count 0.0 (0.00-0.1) % Eos # (Auto) 0.08 (0-0.5) x10^3/uL Immature Gran # (Auto) 0.04 H (0.00-0.03) x10^3u/L Absolute Lymphs (auto) 0.79 L (1.0-4.6) x10^3/uL Absolute Monos (auto) 0.81 (0.0-1.3) x10^3/uL Absolute Nucleated RBC 0.00 (0.00-0.01) x10^3u/L Lymphocytes % 8.6 L (24.0-44.0) % Monocytes % 8.8 (0.0-12.0) % Eosinophils % 0.9 (0.00-5.0) % Basophils % 0.3 (0.0-0.4) % Absolute Granulocytes 7.43 H (1.4-6.9) x10^3/uL Basophils # 0.03 (0-0.4) x10^3/uL Sodium (135-145) mmol/L Potassium (3.5-5.1) mmol/L Chloride (98-107) mmol/L Carbon Dioxide (22-30) mmol/L Anion Gap (5-15) MEQ/L BUN (7-17) mg/dL Creatinine (0.52-1.04) mg/dL Estimated GFR ML/MIN Glucose (74-106) mg/dL Lactic Acid (0.4-2.0) Calcium (8.4-10.2) mg/dL Total Bilirubin (0.2-1.3) mg/dL AST (14-36) U/L ALT (0-35) U/L Alkaline Phosphatase (38-126) U/L Serum Total Protein (6.3-8.2) g/dL Albumin (3.5-5.0) g/dL Urine Color (Yellow) Urine Appearance (Clear) Urine pH (4.6-8.0) Ur Specific [place] (1.005-1.030) Urine Protein (Negative) Urine Glucose (UA) (Negative) mg/dL Urine Ketones (Negative) Urine Blood (Negative) Urine Nitrite (Negative) Urine Bilirubin (Negative) Urine Urobilinogen (0.2) mg/dL Ur Leukocyte Esterase (Negative) U Hyaline Cast (Auto) (0-2) /LPF Urine Microscopic RBC (0-5) /HPF Urine Microscopic WBC (0-5) /HPF Ur Epithelial Cells (None Seen) /HPF Urine Bacteria (None Seen) /HPF Urine Culture Reflexed (NO) - Progress Progress: improved Progress Note: 11/14/23 23:23 88-year-old is evaluated for headache along with generalized weakness fatigue and tiredness. She has a nonfocal neuroexam throughout her stay in the ER. No signs of meningismus. She is given gentle hydration. She is given Reglan and Benadryl, on reevaluation her headache is resolved. Patient workup showed normal white count, fairly unremarkable chemistry. She does have some element of UTI and given a dose of Rocephin in here. 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 Lungs are bilateral clear to auscultation. She is not in any distress. I will continue with Keflex to go home. Do not think patient needs to be admitted. Patient blood pressure was elevated this could be the reason for her headache. She is given hydralazine and it improved. I would not change her blood pressure medication but advised to keep a log and outpatient follow-up to see if needs adjustment in medications. Recommended outpatient follow-up. Discussed signs symptoms of worsening needing return to ER which she seems understanding. Stable for discharge. Counseled pt/family regarding: lab results, diagnosis, need for follow-up, rad results Medical Desision Making - Independent Historian Additional History obtained from: Child - Diagnostic Testing Diagnostic test were ordered, analyzed, and reviewed by me: Yes Radiological Interpretation: Reviewed by me, Teleradiologist Report - Risk of complications The pt has a mod risk of morbidity or mortality based on: Need for prescription drug management - Departure Departure Disposition: Home Clinical Impression: Generalized weakness, Headache, Acute UTI, Uncontrolled hypertension Condition: Stable Critical Care Time: No Referrals: REGINO ALEXANDRA NP [Primary Care Provider] - Follow up with PCP 1 day Instructions: Urinary Tract Infection, Adult (DC), Headache, Adult (DC) Additional Instructions: Drink plenty of fluids to keep yourself well-hydrated. Follow-up with primary care for reevaluation. Return to ER for intractable headache, numbness tingling focal weakness or visual disturbance. Monitor your blood pressure regularly, keep a log and follow-up with PCP to see if needs adjustment in dose of medications. Prescriptions: Cephalexin Mh 500 mg [Keflex 500 mg] 500 mg PO TID #21 cap
[2023-11-14 23:24] VITALS: BP 181/84; PULSE 92; RESP 17; O2SAT 97
--- NOTE | 2023-11-15 07:05 | XRAY ---
Indication: Headache. Status post fall. Multiple contiguous axial images obtained through the head without contrast. Comparison: June 12, 2023 Again age-appropriate global atrophy, mild periventricular degenerative micro-ischemia, and remote lacunar infarcts both basal ganglia/left caudate head. No acute intracranial hemorrhage, abnormal extra-axial fluid collection, or mass effect. Fourth ventricle is midline without hydrocephalus. Bony calvarium intact. Visualized paranasal sinuses and mastoid air cells are clear. Impression: Continued nonacute senile brain with remote lacunar infarcts.
== END 2023-11-14 23:35 | disposition home or self-care (01) ==
LOC: ED 19:51
DX: N39.0 Urinary tract infection, site not specified (principal); R53.1 Weakness; R51.9 Headache, unspecified; I10 Essential (primary) hypertension; E78.5 Hyperlipidemia, unspecified; E11.9 Type 2 diabetes mellitus without complications; Z79.84 Long term (current) use of oral hypoglycemic drugs; Z79.899 Other long term (current) drug therapy
CPT/HCPCS: 36000; 36415; 70450; 80053; 81001; 83605; 85025; 87040; 87086; 93041; 96365; 96374; 96375; 99284; J0360; J0696; J1200

== ENCOUNTER 2023-12-11 12:58 | Emergency (ER) | payer MEDICARE ==
--- NOTE | 2023-12-11 13:29 | ERPHSYRPT ---
- History of Present Illness Time Seen by Provider: 12/11/23 13:20 Source: patient, family Exam Limitations: no limitations Patient Subjective Stated Complaint: C/O fatigue since yesterday. Daughter of patient states this happens when patient doesn't drink enough. Patient denies pain. Triage Nursing Assessment: Patient brought back to ER in a W/C. She is alert and oriented. Able to transfer from chair to bed with stand-by assistance. No SOB. No cough. Skin tone normal. QUAN CORTEZ. Physician History: This is an 88-year-old white female patient of nurse practitioner Isrrael who presents by private vehicle with her daughter bring her to the emergency department because of concern of possibility of dehydration and/or urinary tract infection. Patient began having some complaints of dizziness and fatigue that began yesterday and continued on 2 this morning. Although she did eat and drink yesterday, today she has not eaten or drank much fluids. She denies chest pain. She denies shortness of breath. She has no abdominal pain. She has had no nausea vomiting or diarrhea symptoms. Her symptoms, as stated above, pretty typical for her when she is dehydrated and/or has a urinary tract infection. Patient has a history of lung cancer in the past, hypertension, hyperlipidemia, diabetes and anxiety issues. Timing/Duration: yesterday Severity: mild Associated Symptoms: weakness, other, No shortness of breath, No chest pain (Mild intermittent dizziness), No fever, No syncope Allergies/Adverse Reactions: niacin Allergy (Intermediate, Verified 12/11/23 13:11) Rash Home Medications: Amiloride/Hydrochlorothiazide [Amiloride HCl-Hctz 5-50 mg Tab] 1 each PO DAILY 04/16/23 [History] Aspirin 81 gm Chew [Baby Aspirin 81 mg Chew] 81 mg PO DAILY 04/16/23 [History] Lisinopril 20 mg [Zestril 20 MG] 20 mg PO DAILY 04/16/23 [History] Metformin HCl 500 mg [Glucophage 500 MG] 500 mg PO BIDWM 04/16/23 [History] Escitalopram Oxalate [Lexapro] 10 mg PO DAILY 05/24/23 [History] Simvastatin 20Mg [Zocor 20Mg] 20 mg PO HS 12/11/23 [History] Hx Tetanus, Diphtheria Vaccination/Date Given: Yes Hx Influenza Vaccination/Date Given: Yes Hx Pneumococcal Vaccination/Date Given: Yes Immunizations Up to Date: Yes Travel Risk - International Travel Have you traveled outside of the country in past 3 weeks: No - Emerging Infectious Disease Are you exhibiting symptoms associated with any current EIDs: No - Review of Systems Constitutional: Weakness Eyes: No Symptoms Ears, Nose, & Throat: No Symptoms Respiratory: No Symptoms Cardiac: No Symptoms Abdominal/Gastrointestinal: Appetite Changes, No Abdominal Pain, No Nausea, No Vomiting, No Diarrhea, No Constipation Genitourinary Symptoms: No Symptoms Musculoskeletal: No Symptoms Skin: No Symptoms Neurological: Dizziness (Mild intermittent since last evening) Psychological: No Symptoms Endocrine: No Symptoms Hematologic/Lymphatic: No Symptoms Immunological/Allergic: No Symptoms All Other Systems: Reviewed and Negative - Past Medical History Pertinent Past Medical History: Yes Neurological History: No Pertinent History ENT History: No Pertinent History Cardiac History: High Cholesterol, Hypertension, Other Respiratory History: Lung Cancer Endocrine Medical History: Diabetes Type II Musculoskeletal History: No Pertinent History GI Medical History: No Pertinent History History: No Pertinent History Psycho-Social History: Anxiety Female Reproductive Disorders: No Pertinent History Other Medical History: heart murmur- Dr Santos, 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 - Past Surgical History Past Surgical History: Yes Neuro Surgical History: No Pertinent History Cardiac: No Pertinent History Respiratory: No Pertinent History Gastrointestinal: No Pertinent History Genitourinary: No Pertinent History Musculoskeletal: No Pertinent History Female Surgical History: Hysterectomy - Social History Smoking Status: Never smoker Exposure to second hand smoke: No Drug Use: none Patient Lives Alone: No - Nursing Vital Signs Nursing Vital Signs: Initial Vital Signs Pulse Rate 70 12/11/23 13:08 Respiratory Rate 18 12/11/23 13:08 Blood Pressure 191/96 12/11/23 13:08 O2 Sat by Pulse Oximetry 95 12/11/23 13:08 Pain Scale Pain Intensity 0 - Physical Exam General Appearance: no apparent distress, alert Eye Exam: PERRL/EOMI, eyes nml inspection Ears, Nose, Throat Exam: normal ENT inspection, moist mucous membranes Neck Exam: normal inspection, non-tender, supple, full range of motion Respiratory Exam: normal breath sounds, lungs clear, airway intact, No chest tenderness, No respiratory distress Cardiovascular Exam: regular rate/rhythm, normal heart sounds, normal peripheral pulses Gastrointestinal/Abdomen Exam: soft, normal bowel sounds, No tenderness Pelvic Exam: not done Rectal Exam: not done Back Exam: normal inspection, normal range of motion, No CVA tenderness, No vertebral tenderness Extremity Exam: normal inspection, normal range of motion, pelvis stable Neurologic Exam: alert, oriented x 3, cooperative, log chain worker II-XII nml as tested, normal mood/affect Skin Exam: normal color, warm, dry Lymphatic Exam: No adenopathy SpO2 Interpretation: normal SpO2: 96 O2 Delivery: Room Air - Course Nursing assessment & vital signs reviewed: Yes Ordered Tests: Active Orders 24 hr Category Date Time Status EKG-ER Only STAT Care 12/11/23 13:29 Active IV Insertion STAT Care 12/11/23 13:29 Active CBC W DIFF Stat Lab 12/11/23 13:30 Completed CMP Stat Lab 12/11/23 13:30 Completed CULTURE,URINE Stat Lab 12/11/23 14:32 Received MAG [MAGNESIUM] Stat Lab 12/11/23 13:30 Completed NT PRO BNPII Stat Lab 12/11/23 13:30 Completed TROPONIN Q4H Lab 12/11/23 13:30 Completed TROPONIN Q4H Lab 12/11/23 17:30 Ordered TROPONIN Q4H Lab 12/11/23 21:30 Ordered UA W/RFX UR CULTURE Stat Lab 12/11/23 14:32 Completed Medication Summary Generic Name Dose Route Start Last Admin Trade Name Freq PRN Reason Stop Dose Admin Sodium Chloride 1,000 mls @ 250 mls/hr 12/11/23 13:30 12/11/23 13:34 Sodium Chloride 0.9% 1000 Ml IV 01/10/24 13:29 250 mls/hr .Q4H ANABELLE Administration Ceftriaxone Sodium 1 gm in 100 mls @ 200 mls/hr 12/11/23 14:51 12/11/23 14:55 Rocephin 1 Gm / 100 Ml Nacl IV 12/11/23 15:20 200 mls/hr STAT ONE 200 mls/hr Administration Discontinued Medications Generic Name Dose Route Start Last Admin Trade Name Freq PRN Reason Stop Dose Admin Enalaprilat 1.25 mg 12/11/23 14:34 12/11/23 14:37 Enalaprilat 2.5 Mg Injection IV 12/11/23 14:35 1.25 mg STAT ONE Administration Enalaprilat Confirm 12/11/23 14:36 Enalaprilat 2.5 Mg Injection Administered 12/11/23 14:37 Dose 2.5 mg IV .STK-MED ONE Ceftriaxone Sodium Confirm 12/11/23 14:53 Rocephin 1 Gm / 100 Ml Nacl Administered 12/11/23 14:54 Dose 1 gm in 100 mls @ ud IV .STK-MED ONE Magnesium Oxide 400 mg 12/11/23 14:49 12/11/23 14:52 Magnesium Oxide 400 Mg Tablet PO 12/11/23 14:50 400 mg DAILY STA Administration Magnesium Oxide Confirm 12/11/23 14:51 Magnesium Oxide 400 Mg Tablet Administered 12/11/23 14:52 Dose 400 mg .ROUTE .STK-MED ONE Potassium Chloride 10 meq 12/11/23 14:50 12/11/23 14:52 Potassium Chloride Tab 10 Meq Tab PO 12/11/23 14:51 10 meq STAT ONE Administration Potassium Chloride Confirm 12/11/23 14:51 Potassium Chloride Tab 10 Meq Tab Administered 12/11/23 14:52 Dose 10 meq .ROUTE .STK-MED ONE Lab/Rad Data: Laboratory Result Diagrams 12/11/23 13:30 12/11/23 13:30 Laboratory Results 12/11/23 12/11/23 12/11/23 Range/Units 14:32 13:38 13:30 WBC (4.0-10.5) x10^3/uL RBC (4.1-5.4) x10^6/uL Hgb (12.0-16.0) g/dL Hct (35-47) % MCV (78-100) fL MCH (26-32) pg MCHC (32-36) g/dL RDW (11.5-14.0) % Plt Count (150-450) x10^3/uL MPV (7.5-11.0) fL Gran % (36.0-66.0) % Immature Gran % (Auto) (0.00-0.4) % Nucleat RBC Rel Count (0.00-0.1) % Eos # (Auto) (0-0.5) x10^3/uL Immature Gran # (Auto) (0.00-0.03) x10^3u/L Absolute Lymphs (auto) (1.0-4.6) x10^3/uL Absolute Monos (auto) (0.0-1.3) x10^3/uL Absolute Nucleated RBC (0.00-0.01) x10^3u/L Lymphocytes % (24.0-44.0) % Monocytes % (0.0-12.0) % Eosinophils % (0.00-5.0) % Basophils % (0.0-0.4) % Absolute Granulocytes (1.4-6.9) x10^3/uL Basophils # (0-0.4) x10^3/uL Sodium (135-145) mmol/L Potassium (3.5-5.1) mmol/L Chloride (98-107) mmol/L Carbon Dioxide (22-30) mmol/L Anion Gap (5-15) MEQ/L BUN (7-17) mg/dL Creatinine (0.52-1.04) mg/dL Estimated GFR ML/MIN Glucose (74-106) mg/dL Calcium (8.4-10.2) mg/dL Magnesium 1.2 L (1.6-2.3) mg/dL Total Bilirubin (0.2-1.3) mg/dL AST (14-36) U/L ALT (0-35) U/L Alkaline Phosphatase (38-126) U/L Troponin I < 0.012 (0.000-0.033) ng/mL NT-Pro-B Natriuret Pep (<300) pg/mL Serum Total Protein (6.3-8.2) g/dL Albumin (3.5-5.0) g/dL Urine Color Yellow (Yellow) Urine Appearance Clear (Clear) Urine pH 7.0 (4.6-8.0) Ur Specific [place] 1.020 (1.005-1.030) Urine Protein Trace A (Negative) Urine Glucose (UA) Negative (Negative) mg/dL Urine Ketones Negative (Negative) Urine Blood Trace (Negative) Urine Nitrite Negative (Negative) Urine Bilirubin Negative (Negative) Urine Urobilinogen 1.0 A (0.2) mg/dL Ur Leukocyte Esterase Small A (Negative) U Hyaline Cast (Auto) NONE SEEN (0-2) /LPF Urine Microscopic RBC 6-10 A (0-5) /HPF Urine Microscopic WBC 6-10 A (0-5) /HPF Ur Epithelial Cells Rare (None Seen) /HPF Urine Bacteria None Seen (None Seen) /HPF Urine Culture Reflexed YES (NO) Influenza Type A Ag NEGATIVE (NEGATIVE) Influenza Type B Ag NEGATIVE (NEGATIVE) RSV (PCR) NEGATIVE (NEGATIVE) SARS-CoV-2 (PCR) NEGATIVE (NEGATIVE) 12/11/23 12/11/23 Range/Units 13:30 13:30 WBC 7.1 (4.0-10.5) x10^3/uL RBC 4.27 (4.1-5.4) x10^6/uL Hgb 13.3 (12.0-16.0) g/dL Hct 38.8 (35-47) % MCV 90.9 (78-100) fL MCH 31.1 (26-32) pg MCHC 34.3 (32-36) g/dL RDW 12.8 (11.5-14.0) % Plt Count 347 (150-450) x10^3/uL MPV 8.8 (7.5-11.0) fL Gran % 73.1 H (36.0-66.0) % Immature Gran % (Auto) 0.4 (0.00-0.4) % Nucleat RBC Rel Count 0.0 (0.00-0.1) % Eos # (Auto) 0.04 (0-0.5) x10^3/uL Immature Gran # (Auto) 0.03 (0.00-0.03) x10^3u/L Absolute Lymphs (auto) 1.13 (1.0-4.6) x10^3/uL Absolute Monos (auto) 0.67 (0.0-1.3) x10^3/uL Absolute Nucleated RBC 0.00 (0.00-0.01) x10^3u/L Lymphocytes % 15.9 L (24.0-44.0) % Monocytes % 9.4 (0.0-12.0) % Eosinophils % 0.6 (0.00-5.0) % Basophils % 0.6 (0.0-0.4) % Absolute Granulocytes 5.18 (1.4-6.9) x10^3/uL Basophils # 0.04 (0-0.4) x10^3/uL Sodium 133 L (135-145) mmol/L Potassium 3.4 L (3.5-5.1) mmol/L Chloride 94 L (98-107) mmol/L Carbon Dioxide 30 (22-30) mmol/L Anion Gap 12.2 (5-15) MEQ/L BUN 14 (7-17) mg/dL Creatinine 0.61 (0.52-1.04) mg/dL Estimated GFR 86.5 ML/MIN Glucose 130 H (74-106) mg/dL Calcium 9.1 (8.4-10.2) mg/dL Magnesium (1.6-2.3) mg/dL Total Bilirubin 0.80 (0.2-1.3) mg/dL AST 24 (14-36) U/L ALT 11 (0-35) U/L Alkaline Phosphatase 83 (38-126) U/L Troponin I (0.000-0.033) ng/mL NT-Pro-B Natriuret Pep 333 (<300) pg/mL Serum Total Protein 7.3 (6.3-8.2) g/dL Albumin 4.1 (3.5-5.0) g/dL Urine Color (Yellow) Urine Appearance (Clear) Urine pH (4.6-8.0) Ur Specific [place] (1.005-1.030) Urine Protein (Negative) Urine Glucose (UA) (Negative) mg/dL Urine Ketones (Negative) Urine Blood (Negative) Urine Nitrite (Negative) Urine Bilirubin (Negative) Urine Urobilinogen (0.2) mg/dL Ur Leukocyte Esterase (Negative) U Hyaline Cast (Auto) (0-2) /LPF Urine Microscopic RBC (0-5) /HPF Urine Microscopic WBC (0-5) /HPF Ur Epithelial Cells (None Seen) /HPF Urine Bacteria (None Seen) /HPF Urine Culture Reflexed (NO) Influenza Type A Ag (NEGATIVE) Influenza Type B Ag (NEGATIVE) RSV (PCR) (NEGATIVE) SARS-CoV-2 (PCR) (NEGATIVE) - Progress Progress: improved, re-examined Progress Note: 12/11/23 13:36 The medical decision making and the patient complexity was determined by review of the patient's past medical history, review of the patient's chief complaint, review the patient's medication list, review of the patient's drug allergy list, history present illness and physical findings on examination. The workup in this patient includes placement of intravenous line, infusion of normal saline solution, twelve-lead EKG, troponin level, BNP level, magnesium level, CBC, CMP and urinalysis. 12/11/23 15:16 Clinically, the patient states she is feeling much better. I have interpreted her laboratory data results. She does have a mild urinary tract infection. She also had mild hypokalemia and mild hypomagnesemia. Patient has a history of hypertension. We did provide her with 1.25 mg intravenous enalaprilat. She takes amlodipine/hydrochlorothiazide and lisinopril. She did not take those medicines today. Counseled pt/family regarding: lab results, diagnosis, need for follow-up Medical Desision Making - Independent Historian Additional History obtained from: Family - Diagnostic Testing Diagnostic test were ordered, analyzed, and reviewed by me: Yes - Risk of complications The pt has a mod risk of morbidity or mortality based on: Need for prescription drug management - Departure Departure Disposition: Home Clinical Impression: Hypertension, UTI (urinary tract infection), Hypomagnesemia, Hypokalemia Condition: Stable Critical Care Time: No Referrals: REGINO ALEXANDRA NP [Primary Care Provider] - Follow up/PCP as directed Additional Instructions: Plenty of fluids. Take your antibiotics and other medications as prescribed. Call your primary care provider tomorrow, 12/12/2023, to make arranges for follow-up appointment for further evaluation and management. Prescriptions: Cephalexin Mh 500 mg [Keflex 500 mg] 500 mg PO TID #21 cap
[2023-12-11] MEDS ORDERED: Sodium Chloride 0.9% 1000 ML 1,000 ML ONE (13:34)
[2023-12-11] MEDS: Sodium Chloride 0.9% 1000 ML 1,000 ML IV SCH (13:34)
[2023-12-11 13:41] LABS: Absolute Neutrophil Ct (ANC) 5.18 x10^3/uL (1.4-6.9); BASOPHIL % 0.6 % (0.0-0.4); Basophil (Absolute #) 0.04 x10^3/uL (0-0.4); Eosinophil % 0.6 % (0.00-5.0); Eosinophil (Absolute #) 0.04 x10^3/uL (0-0.5); Hematocrit 38.8 % (35-47); Hemoglobin 13.3 g/dL (12.0-16.0); IMMATURE GRAN # 0.03 x10^3u/L (0.00-0.03); IMMATURE GRAN % 0.4 % (0.00-0.4); Lymphocyte (Absolute #) 1.13 x10^3/uL (1.0-4.6); Lymphocytes % 15.9 % (24.0-44.0); Mean Cell Volume 90.9 fL (78-100); Mean Corpuscular Hemoglobin 31.1 pg (26-32); Mean Corpuscular Hgb Concent. 34.3 g/dL (32-36); Mean Platelet Volume 8.8 fL (7.5-11.0); Monocyte (Absolute #) 0.67 x10^3/uL (0.0-1.3); Monocytes % 9.4 % (0.0-12.0); Neutrophil % 73.1 % (36.0-66.0); Platelet Count 347 x10^3/uL (150-450); Red Blood Count 4.27 x10^6/uL (4.1-5.4); Red Cell Distribution Width 12.8 % (11.5-14.0); White Blood Count 7.1 x10^3/uL (4.0-10.5)
[2023-12-11 14:14] LABS: ALBUMIN 4.1 g/dL (3.5-5.0); ANION GAP 12.2 MEQ/L (5-15); BILIRUBIN,TOTAL 0.8 mg/dL (0.2-1.3); Calcium 9.1 mg/dL (8.4-10.2); Creatinine 1 0.61 mg/dL (0.52-1.04); EST GLOMERULAR FILTRATION RATE 86.5 ML/MIN; Potassium 3.4 mmol/L (3.5-5.1); Total Protein 7.3 g/dL (6.3-8.2)
[2023-12-11 14:17] LABS: MAGNESIUM 1.2 mg/dL (1.6-2.3); TROPONIN < 0.012 ng/mL (0.000-0.033)
[2023-12-11 14:19] LABS: INFLUENZA A NEGATIVE (NEGATIVE); INFLUENZA B NEGATIVE (NEGATIVE); RESPIRATORY SYNCTIAL VIRUS NEGATIVE (NEGATIVE); SARS-CoV-2 Xpert Express NEGATIVE (NEGATIVE)
[2023-12-11] MEDS ORDERED: ENALAPRILAT 2.5 MG INJECTION IV ONE (14:36)
[2023-12-11] MEDS: ENALAPRILAT 2.5 MG INJECTION IV ONE (14:37)
[2023-12-11 14:43] LABS: ADD URINE CULTURE? YES (NO); Appearance Clear (Clear); Bacteria None Seen /HPF (None Seen); Bilirubin Negative (Negative); Blood Trace (Negative); Epithelial Cells Rare /HPF (None Seen); Glucose, Urine Negative (Negative); Hyaline Casts NONE SEEN /LPF (0-2); Ketones Negative (Negative); Leukocyte Esterase Small (Negative); Nitrite Negative (Negative); Protein,Urine Dip Trace (Negative)
[2023-12-11] MEDS ORDERED: MAG-OX 400 ONE (14:51)
[2023-12-11] MEDS ORDERED: Klor Con ONE (14:51)
[2023-12-11] MEDS: MAG-OX 400 PO STA (14:52)
[2023-12-11] MEDS: Klor Con PO ONE (14:52)
[2023-12-11] MEDS ORDERED: ROCEPHIN 1 GM / 100 ML NaCl 1 GM/100 ML IVPB IV ONE (14:53)
[2023-12-11] MEDS: ROCEPHIN 1 GM / 100 ML NaCl 1 GM/100 ML IVPB IV ONE (14:55)
[2023-12-11 15:46] VITALS: RESP 20
[2023-12-11 16:07] VITALS: BP 196/90; PULSE 78; O2SAT 98
== END 2023-12-11 16:10 | disposition home or self-care (01) ==
LOC: ED 12:58
DX: N39.0 Urinary tract infection, site not specified (principal); I10 Essential (primary) hypertension; E87.6 Hypokalemia; E83.42 Hypomagnesemia; R42 Dizziness and giddiness; R53.83 Other fatigue; E78.5 Hyperlipidemia, unspecified; E11.9 Type 2 diabetes mellitus without complications; Z79.84 Long term (current) use of oral hypoglycemic drugs; Z79.899 Other long term (current) drug therapy; Z11.52 Encounter for screening for COVID-19
CPT/HCPCS: 0241U; 36000; 36415; 80053; 81001; 83735; 83880; 84484; 85025; 87086; 93005; 96374; 99284; J0696; A9270-GY